=== PATIENT | female | born 1990 | race Caucasian/White ===

== ENCOUNTER 2017-01-21 21:12 | Inpatient (IN) | payer OTHER ==
[~2017-01-21] VITALS: Ht 165.1 cm; Wt 74.0 kg
[2017-01-21] MEDS ORDERED: LACTATED RINGERS 1,000 ML IV SCH (22:43)
[2017-01-21] MEDS ORDERED: D5%-LACTATED RINGERS 1,000 ML IV SCH (22:43)
[2017-01-21] MEDS ORDERED: OXYTOCIN 30U/ 0.9% NaCL 500ML 500 ML IV ONE (22:43)
[2017-01-21] MEDS ORDERED: OXYTOCIN 30U/ 0.9% NaCL 500ML 500 ML IV PRN (22:43)
[2017-01-21] MEDS ORDERED: MISOPROSTOL 200 MCG TABLET ONE (22:47)
[2017-01-21] MEDS ORDERED: LIDOCAINE 1%, 20ML ONE (22:47)
[2017-01-21] MEDS ORDERED: NEWBORN KIT ONE (22:48)
[2017-01-21] MEDS ORDERED: OXYTOCIN 30U/ 0.9% NaCL 500ML 500 ML ONE (22:48)
[2017-01-21] MEDS ORDERED: ONDANSETRON 2MG/ML, 2ML IVPush PRN (23:00)
[2017-01-21] MEDS ORDERED: METOCLOPRAMIDE 5 MG/ML, 2ML IVPush PRN (23:00)
[2017-01-21] MEDS ORDERED: FENTANYL PF 100 MCG/2ML IV PRN (23:00)
[2017-01-21] MEDS ORDERED: SODIUM CITRATE/CITRIC ACID 30 ML UDC PO PRN (23:00)
[2017-01-21] MEDS ORDERED: FENTANYL PF 100 MCG/2ML IVPush PRN (23:00)
[2017-01-21 23:07] LABS: HEMATOCRIT 37.8 % (34.6-47.8); HEMOGLOBIN 12.6 g/dL (11.7-16.4); WHITE BLOOD COUNT 16.5 x10^3/uL (3.4-10)
[2017-01-21] MEDS ORDERED: FENTANYL PF 100 MCG/2ML ONE (23:16)
[2017-01-22] MEDS ORDERED: OXYTOCIN 30U/ 0.9% NaCL 500ML 500 ML IV SCH (00:34)
[2017-01-22] MEDS ORDERED: ONDANSETRON 2MG/ML, 2ML IV PRN (01:00)
[2017-01-22] MEDS ORDERED: DOCUSATE 100 MG CAPSULE PO PRN (01:00)
[2017-01-22] MEDS ORDERED: ACETAMINOPHEN 325 MG TABLET PO PRN (01:00)
[2017-01-22] MEDS ORDERED: METOCLOPRAMIDE 5 MG/ML, 2ML IV PRN (01:00)
[2017-01-22] MEDS ORDERED: CALCIUM CARBONATE 500 MG TAB.CHEW PO PRN (01:00)
[2017-01-22] MEDS ORDERED: HYDROcodone/APAP 5/325 TABLET PO PRN (01:00)
[2017-01-22] MEDS ORDERED: IBUPROFEN 600 MG TABLET ONE (01:08)
[2017-01-22] MEDS: IBUPROFEN 600 MG TABLET PO PRN ×2 (01:25→14:23)
[2017-01-22 02:00] VITALS: BP 113/60
[2017-01-22 06:00] VITALS: BP 113/69
[2017-01-22] MEDS ORDERED: LEVOTHYROXINE 125 MCG TABLET HOMEMEDPO SCH (06:00)
[2017-01-22] MEDS ORDERED: LEVOTHYROXINE 125 MCG TABLET PO SCH (06:00)
[2017-01-22] MEDS ORDERED: PRENATAL VIT/IRON/FA 1 EACH TABLET PO SCH (09:00)
[2017-01-22 09:02] LABS: HEMOGLOBIN 12.5 g/dL (11.7-16.4); WHITE BLOOD COUNT 20.6 x10^3/uL (3.4-10)
[2017-01-22 11:50] VITALS: BP 118/81
[2017-01-22] MEDS ORDERED: IBUP-1222 PO (15:11)
[2017-01-22] MEDS ORDERED: DOCU-30 PO (15:12)
[2017-01-22] MEDS ORDERED: DIPH,PERTUSS(ACELL),TET VAC/PF NC IM-VACC ONE (17:11)
== END 2017-01-22 18:20 | disposition home or self-care (01) | DRG 775 ==
LOC: LDOP 21:12 → LDIP 22:40 → 2NW 01-22 01:42
PROVIDERS: ADMIT Obstetrics & Gynecology; ATTEND Obstetrics & Gynecology
PROC: 0HQ9XZZ Repair Perineum Skin, External Approach (ICD-10-PCS; principal; 2017-01-22)
PROC: 10E0XZZ Delivery of Products of Conception, External Approach (ICD-10-PCS; 2017-01-22)
DX: O70.0 First degree perineal laceration during delivery (principal); Z3A.38 38 weeks gestation of pregnancy; Z37.0 Single live birth
CPT/HCPCS: 36415; 85025; 86850; 86900; J3010; J7120

== ENCOUNTER 2019-12-13 15:23 | Inpatient (IN) | payer OTHER ==
[~2019-12-13] VITALS: Ht 165.1 cm; Wt 74.5 kg
[~2019-12-13 15:23] MED LIST: DOCU-131 PO; IBUP-1222 PO
[2019-12-13] MEDS ORDERED: LIDOCAINE 1%, 20ML ONE (15:50)
[2019-12-13] MEDS ORDERED: OXYTOCIN 30U/ 0.9% NaCL 500ML 500 ML IV ONE (15:50)
[2019-12-13] MEDS ORDERED: NEWBORN KIT ONE (15:50)
[2019-12-13] MEDS ORDERED: OXYTOCIN 30U/ 0.9% NaCL 500ML 500 ML ONE ×2 (15:51→22:29)
[2019-12-13] MEDS ORDERED: MISOPROSTOL 200 MCG TABLET ONE (15:51)
[2019-12-13] MEDS ORDERED: FENTANYL PF 100 MCG/2ML IV PRN (16:00)
[2019-12-13] MEDS ORDERED: CALCIUM CARBONATE 500 MG TAB.CHEW PO PRN (16:00)
[2019-12-13] MEDS ORDERED: ONDANSETRON 2MG/ML, 2ML IVPush PRN (16:00)
[2019-12-13] MEDS ORDERED: TERBUTALINE 1 MG/ML, 1ML SQ PRN (16:00)
[2019-12-13] MEDS ORDERED: FENTANYL PF 100 MCG/2ML IVPush PRN (16:00)
[2019-12-13] MEDS ORDERED: TERBUTALINE 1 MG/ML, 1ML IVPush PRN (16:00)
[2019-12-13 16:01] VITALS: BP 124/69
[2019-12-13 16:10] LABS: BASOPHILS # (AUTO) 0.04 x10^3/uL (0-0.1); BASOPHILS % (AUTO) 0 % (0-1); EOSINOPHILS # (AUTO) 0.11 x10^3/uL (0-0.4); EOSINOPHILS % (AUTO) 1 % (1-7); LYMPHOCYTES # (AUTO) 2.71 x10^3/uL (1-3.4); LYMPHOCYTES % (AUTO) 24 % (22-44); MD NO; MEAN CORPUSCULAR HEMOGLOBIN 30.5 pg (27.0-34.8); MEAN CORPUSCULAR HGB CONC 33.1 g/dL (32.4-35.8); MEAN PLATELET VOLUME 8.5 fL (7.4-10.4); MONOCYTES # (AUTO) 0.58 x10^3/uL (0.2-0.8); MONOCYTES % (AUTO) 5 % (2-9); NEUTROPHILS # (AUTO) 7.77 x10^3/uL (1.8-6.8); NEUTROPHILS % (AUTO) 69 % (42-75); PLATELET COUNT 224 x10^3/uL (130-400); RED BLOOD COUNT 4.15 x10^6/uL (3.82-5.3); RED CELL DISTRIBUTION WIDTH 12.9 % (9.6-15.2)
[2019-12-13] MEDS ORDERED: PENICILLIN GK 5,000,000 UNITS in DEXTROSE 5% 100 ML IVPB ONE (16:14)
[2019-12-13] MEDS ORDERED: LACTATED RINGERS 1,000 ML IV SCH (16:30)
[2019-12-13] MEDS: LACTATED RINGERS 1,000 ML IV SCH (16:31)
[2019-12-13] MEDS ORDERED: LEVO125T5 PO (17:18)
[2019-12-13] MEDS ORDERED: PREN1TAB60 PO (19:29)
[2019-12-13] MEDS: PENICILLIN GK 2,500,000 UNITS in DEXTROSE 5% 100 ML IVPB SCH ×2 (20:00→20:05)
[2019-12-13] MEDS ORDERED: FENTANYL PF 100 MCG/2ML ONE (21:24)
[2019-12-13] MEDS ORDERED: ONDANSETRON 2MG/ML, 2ML ONE (21:25)
[2019-12-13] MEDS ORDERED: IBUPROFEN 800 MG TABLET ONE (22:29)
[2019-12-13] MEDS ORDERED: MISOPROSTOL 200 MCG TABLET PR PRN (22:30)
[2019-12-13] MEDS ORDERED: OXYcodone IR 5MG TABLET PO PRN (22:30)
[2019-12-13] MEDS ORDERED: OXYcodone/APAP 5/325MG TABLET PO PRN (22:30)
[2019-12-13] MEDS ORDERED: CARBOPROST TROMETHAMINE 250 MCG/ML, 1ML IM PRN (22:30)
[2019-12-13] MEDS ORDERED: ONDANSETRON 2MG/ML, 2ML IV PRN (22:30)
[2019-12-13] MEDS ORDERED: IBUPROFEN 800 MG TABLET PO PRN (22:30)
[2019-12-13] MEDS ORDERED: DOCUSATE 100 MG CAPSULE PO PRN (22:30)
[2019-12-13] MEDS ORDERED: METHYLERGONOVINE 0.2 MG/ML IM PRN (22:30)
[2019-12-13] MEDS ORDERED: ACETAMINOPHEN 325 MG TABLET PO PRN (22:30)
[2019-12-13] MEDS ORDERED: GLYCERIN ADULT SUPP PR PRN (22:30)
[2019-12-13] MEDS ORDERED: BISACODYL 10 MG SUPP PR PRN (22:30)
[2019-12-13] MEDS ORDERED: METOCLOPRAMIDE 5 MG/ML, 2ML IV PRN (22:30)
[2019-12-13] MEDS ORDERED: SIMETHICONE 80 MG CHEW TAB PO PRN (22:30)
[2019-12-13] MEDS: OXYTOCIN 30U/ 0.9% NaCL 500ML 500 ML IV SCH (22:32)
[2019-12-14 00:15] VITALS: BP 107/57
[2019-12-14] MEDS: LACTATED RINGERS 1,000 ML IV SCH ×3 (00:31→16:31)
[2019-12-14 03:50] VITALS: BP 106/62
[2019-12-14] MEDS ORDERED: LEVOTHYROXINE 125 MCG TABLET PO SCH (06:00)
[2019-12-14 06:29] LABS: MEAN CORPUSCULAR HEMOGLOBIN 30.8 pg (27.0-34.8); MEAN CORPUSCULAR HGB CONC 33.4 g/dL (32.4-35.8); PLATELET COUNT 186 x10^3/uL (130-400); RED BLOOD COUNT 3.45 x10^6/uL (3.82-5.3); RED CELL DISTRIBUTION WIDTH 12.9 % (9.6-15.2)
[2019-12-14 06:43] LABS: BASOPHILS # (AUTO) 0.04 x10^3/uL (0-0.1); BASOPHILS % (AUTO) 0 % (0-1); EOSINOPHILS # (AUTO) 0.12 x10^3/uL (0-0.4); EOSINOPHILS % (AUTO) 1 % (1-7); LYMPHOCYTES # (AUTO) 3.38 x10^3/uL (1-3.4); LYMPHOCYTES % (AUTO) 21 % (22-44); MD SCAN; MONOCYTES # (AUTO) 0.93 x10^3/uL (0.2-0.8); MONOCYTES % (AUTO) 6 % (2-9); NEUTROPHILS # (AUTO) 12.03 x10^3/uL (1.8-6.8); NEUTROPHILS % (AUTO) 73 % (42-75)
[2019-12-14 07:06] VITALS: BP 100/56
[2019-12-14] MEDS: IBUPROFEN 600 MG TABLET PO PRN ×2 (07:24→13:51)
[2019-12-14] MEDS: OXYTOCIN 30U/ 0.9% NaCL 500ML 500 ML IV SCH ×2 (07:53→16:37)
[2019-12-14] MEDS ORDERED: PRENATAL VIT/IRON/FA 1 EACH TABLET PO SCH (09:00)
[2019-12-14 12:21] VITALS: BP 96/39
[2019-12-14] MEDS ORDERED: IBUP-1222 PO (14:37)
[2019-12-14 15:48] VITALS: BP 126/60
== END 2019-12-14 19:00 | disposition home or self-care (01) | DRG 807 ==
LOC: LDOP 15:23 → LDIP 15:49 → 2NW 23:55
PROVIDERS: ADMIT Student in an Organized Health Care Education/Training Program; ATTEND Student in an Organized Health Care Education/Training Program
PROC: 10E0XZZ Delivery of Products of Conception, External Approach (ICD-10-PCS; principal; 2019-12-13)
DX: O99.824 Streptococcus B carrier state complicating childbirth (principal); Z37.0 Single live birth; Z3A.38 38 weeks gestation of pregnancy
CPT/HCPCS: 36415; 85025; 86592; 86850; 86900; G0378; J2540; J3010; J2590; J7120